=== PATIENT | female | born 1945 | race Caucasian/White ===

== ENCOUNTER 2020-10-18 10:22 | Emergency (ER) | payer MEDICARE, OTHER, SELFPAY ==
[2020-10-18 10:36] VITALS: BP 188/88; PULSE 107; RESP 20; TEMP 37.8; O2SAT 97; BMI 34.4
[2020-10-18 11:12] LABS: COVID19 -Nasal RAPID Negative (Negative)
--- NOTE | 2020-10-18 12:17 | DI.RAD.S_ITS ---
PROCEDURE: XR CHEST 1V INDICATIONS: cough, congestion TECHNIQUE: One view of the chest was acquired. COMPARISON: None. FINDINGS: Surgical changes and devices: None. Lungs and pleura: Question right perihilar mass. Lungs are clear. No pleural effusions or pneumothorax. Mediastinum: Question right perihilar mass. Heart size is normal. Bones and chest wall: No suspicious bony lesions. Overlying soft tissues appear unremarkable. IMPRESSION: Question right perihilar mass. Recommend CT chest with contrast. Dictated by: Lane Arango M.D. on 10/18/2020 at 12:31 Approved by: Lane Arango M.D. on 10/18/2020 at 12:32
--- NOTE | 2020-10-18 12:55 | DI.CT.S_ITS ---
PROCEDURE: CT HEAD/BRAIN WO CON INDICATIONS: glf hit head on toilet TECHNIQUE: Noncontrast 4.5 mm thick angled axial sections acquired from the foramen magnum to the vertex, with coronal and sagittal reformats. For radiation dose reduction, the following was used: automated exposure control, adjustment of mA and/or kV according to patient size. COMPARISON: None. FINDINGS: Image quality: Excellent. CSF spaces: Basal cisterns are patent. No extra-axial fluid collections. The ventricles are symmetric in size and shape. Brain: No intracranial bleeds or masses. There is cerebral volume loss for age, with resultant ventricular and sulcal prominence. There are periventricular and deep white matter chronic small vessel ischemic changes. There is intracranial internal carotid artery atherosclerosis. Skull and face: Calvarium and visualized facial bones appear intact, without suspicious lesions. Sinuses: Visualized sinuses and mastoids are clear. IMPRESSION: No acute intracranial disease process. Dictated by: Sangeeta Armendariz MD, PhD on 10/18/2020 at 13:28 Approved by: Sangeeta Armendariz MD, PhD on 10/18/2020 at 13:29
--- NOTE | 2020-10-18 13:14 | ED_ITS ---
HPI - URI/Sore Throat <ЕЛЕНА Duke - Last Filed: 10/18/20 17:06> General Chief Complaint: Upper Respiratory Symptoms Stated Complaint: ear ache, congestion, headache. fell Time Seen by Provider: 10/18/20 12:03 Source: patient Mode of arrival: Ambulatory Limitations: no limitations History of Present Illness HPI Narrative: The patient is a 74-year-old female nonsmoker with history of 1 kidney who presents with a chief complaint of earache, congestion, headache. She also notes that she fell Thday night in a hotel room and hit the right side of her forehead against a toilet. This happened when she was walking around her hotel room in the dark at night. She leaned forward, believing that she would lean on a door, and Insteadl fell forward. she denies any loss of consciousness, states that she felt fine the next day. She denies any side midline neck pain. She complains of pain on the right side of her neck. She states that she has not taken anything for the pain as Tylenol does not work. She is afraid to take NSAIDs with her 1 kidney. She also notes that she has had a very bad earache for the past few days. She complains of low-grade temperatur es and congestion. She has been fully vaccinated against COVID with both shots of a Pfizer series. She has been using [id number] Mucinex. She is in town visiting her sister. she does have a slight cough. Related Data Previous Rx's Medication Instructions Recorded acetaminophen 300 mg-codeine 30 mg 1 tab PO Q4-6H PRN #7 tab 10/18/20 tablet amoxicillin 875 mg tablet 875 mg PO BID #14 tab 10/18/20 lidocaine 5 % topical patch 1 patch TOPICAL DAILY PRN #15 ea 10/18/20 Allergies Allergy/AdvReac Type Severity Reaction Status Date / Time Sulfa (Sulfonamide Allergy Verified 10/18/20 10:45 Antibiotics) Review of Systems <ЕЛЕНА Duke - Last Filed: 10/18/20 17:06> Review of Systems Narrative: GENERAL: see HPI HEENT: see HPI RESPIRATORY: see HPI CARDIOVASCULAR: Denies chest pain, palpitations, orthopnea, edema, GASTROINTESTINAL: Denies nausea, vomiting, abdominal pain, diarrhea, constipation, melena. : Denies dysuria, frequency, incontinence, hematuria, urinary retention. MUSCULOSKELETAL: denies weakness, joint pain, or bony pain SKIN: Denies rash, skin lesions, or other NEUROLOGIC: Denies weakness, headache, numbness, change in speech, confusion, seizures, incoordination. PSYCHIATRIC: No concerning psychosocial issues. 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 HEAD: Atraumatic. Normocephalic. No temporal or scalp tenderness. EYES: Pupils equal round and reactive. Extraocular motions intact. No scleral icterus. No injection or drainage. ENT: Nose without bleeding, purulent drainage or septal hematoma. Throat without erythema, tonsillar hypertrophy or exudate. Uvula midline. Airway patent. right TM slightly erythematous and bulging. No pain to palpation of right pinna, no pain to palpation right mastoid. Right ear canal within normal limits, left ear canal within normal limits, left TM pearly padilla NECK: Trachea midline. No JVD or lymphadenopathy. Supple, nontender, no meningeal signs. CARDIOVASCULAR: Regular rate and rhythm RESPIRATORY: Clear to auscultation. Breath sounds equal bilaterally. No wheezes, rales, or rhonchi. Occasional cough. No increased respiratory effort. Speaking full sentences. GASTROINTESTINAL: Abdomen soft, non-tender, nondistended. No hepato- splenomegaly, or palpable masses. No guarding. EXTREMITIES: No clubbing, cyanosis, or edema. No joint tenderness, effusion, or edema noted. BACK: No pain to C-spine palpation. Nontender without deformity or crepitance. No flank tenderness. NEURO: AOx3. SKIN: No rash or erythema On visible skin Initial Vital Signs Initial Vital Signs: Vital Signs Temperature 100.1 F H 10/18/20 10:36 Pulse Rate 107 H 10/18/20 10:36 Respiratory Rate 20 10/18/20 10:36 Blood Pressure 188/88 H 10/18/20 10:36 Pulse Oximetry 97 10/18/20 10:36 <Ben Easton DO - Last Filed: 10/18/20 17:06> Initial Vital Signs Initial Vital Signs: Vital Signs Temperature 100.1 F H 10/18/20 10:36 Pulse Rate 107 H 10/18/20 10:36 Respiratory Rate 20 10/18/20 10:36 Blood Pressure 188/88 H 10/18/20 10:36 Pulse Oximetry 97 10/18/20 10:36 Scores <ЕЛЕНА Duke - Last Filed: 10/18/20 17:06> [place] CT Head Rule Age <16 years old: No Patient on blood thinners: No Seizure after injury: No Exclusion: Patient NOT Excluded, Proceed to next steps GCS < 15 at 2 hr post trauma: No Suspected open or depressed skull fracture: No Any sign of basilar skull fracture (hemotympanum, raccoon eyes, Bello's sign, CSF xi-/rhinorrhea): No Two or more episodes of vomiting: No Age greater or equal to 65 years: Yes Retrograde amnesia to the event greater or equal to 30 min: No Dangerous Mechanism (pedestrian vs. mv, occupant ejected from mv, fall from >3 ft or > 5 stairs): No Recommendation: Consider CT. The [place] Head CT Rule cannot rule out need for Imaging. GCS [place] coma scale eye opening: Spontaneous Myles coma scale verbal response: Orientated [place] coma scale motor response: Obey commands [place] coma scale total score: 15 Nexus Score for C-Spine Focal Neurologic deficit present: No Midline spinal tenderness present: No Altered level of conciousness present: No Intoxication present: No Distracting Injury Present: No Nexus Criteria for C-spine: 0 <DO Khoa Beyer Last Filed: 10/18/20 17:06> [place] CT Head Rule Exclusion: Patient NOT Excluded, Proceed to next steps Recommendation: Consider CT. The [place] Head CT Rule cannot rule out need for Imaging. GCS [place] coma scale total score: 15 Nexus Score for C-Spine Nexus Criteria for C-spine: 0 Course <ЕЛЕНА Duke - Last Filed: 10/18/20 17:06> Orders Ordered: ED Orders 10/18/20 10:40 COVID19 -Nasal swab/Pre-Proc Stat 10/18/20 12:17 XR chest 1V Stat 10/18/20 12:55 CT head/brain wo con Stat Discontinued Medications Acetaminophen (Acetaminophen 325 Mg Tablet) 325 mg PO NOW ONE Stop: 10/18/20 12:57 Last Admin: 10/18/20 13:34 Dose: 325 mg Documented by: ASHVIN Hydrocodone Bitart/Acetaminophen (Hydrocodone/Acet 5/325 Tablet) 1 tab PO NOW ONE Stop: 10/18/20 12:56 Last Admin: 10/18/20 13:34 Dose: 1 tab Documented by: ASHVIN Cyclobenzaprine HCl (Cyclobenzaprine 10 Mg Tablet) 10 mg PO NOW ONE Stop: 10/18/20 12:59 Last Admin: 10/18/20 13:35 Dose: 10 mg Documented by: ASHVIN Lidocaine (Lidocaine Patch 1 Each Adh..Patch) 1 each TOP NOW ONE Stop: 10/18/20 12:59 Last Admin: 10/18/20 13:35 Dose: 1 each Documented by: ASHVIN Vital Signs Vital signs: Vital Signs - 8 hr 10/18/20 10:36 10/18/20 14:19 Temperature 100.1 F H 97.8 F Pulse Rate 107 H 89 Respiratory Rate 20 12 Blood Pressure 188/88 H 140/73 Pulse Oximetry 97 98 <Ben Easton DO - Last Filed: 10/18/20 17:06> Orders Ordered: ED Orders 10/18/20 10:40 COVID19 -Nasal swab/Pre-Proc Stat 10/18/20 12:17 XR chest 1V Stat 10/18/20 12:55 CT head/brain wo con Stat Discontinued Medications Acetaminophen (Acetaminophen 325 Mg Tablet) 325 mg PO NOW ONE Stop: 10/18/20 12:57 Last Admin: 10/18/20 13:34 Dose: 325 mg Documented by: ASHVIN Hydrocodone Bitart/Acetaminophen (Hydrocodone/Acet 5/325 Tablet) 1 tab PO NOW ONE Stop: 10/18/20 12:56 Last Admin: 10/18/20 13:34 Dose: 1 tab Documented by: ASHVIN Cyclobenzaprine HCl (Cyclobenzaprine 10 Mg Tablet) 10 mg PO NOW ONE Stop: 10/18/20 12:59 Last Admin: 10/18/20 13:35 Dose: 10 mg Documented by: ASHVIN Lidocaine (Lidocaine Patch 1 Each Adh..Patch) 1 each TOP NOW ONE Stop: 10/18/20 12:59 Last Admin: 10/18/20 13:35 Dose: 1 each Documented by: ASHVIN Vital Signs Vital signs: Vital Signs - 8 hr 10/18/20 10:36 10/18/20 14:19 Temperature 100.1 F H 97.8 F Pulse Rate 107 H 89 Respiratory Rate 20 12 Blood Pressure 188/88 H 140/73 Pulse Oximetry 97 98 MDM - URI/Sore Throat <ЕЛЕНА Duke - Last Filed: 10/18/20 17:06> Lab Data Labs: Lab Results 10/18/20 Range/Units 10:40 SARS-CoV-2 (PCR) Negative (Negative) Imaging Data CT scan - head: Radiologist's Impression: [address] [place] [id number] Scan ReportSigned Patient: Lizzeth Parekh MMR#: [id number]: 6Acct:[id number]/Sex: 74 / FDate of Service: 10/18/20Loc: EDAccession Number: [id number] Procedure: CT head/brain wo con Ordering Provider: Latonia Garcia PROCEDURE: CT HEAD/BRAIN WO CON INDICATIONS: glf hit head on toilet TECHNIQUE: Noncontrast 4.5 mm thick angled axial sections acquired from the foramen magnum to the vertex, with coronal and sagittal reformats. For radiation dose reduction, the following was used: automated exposure control, adjustment of mA and/or kV according to patient size. COMPARISON: None. FINDINGS: Image quality: Excellent. CSF spaces: Basal cisterns are patent. No extra-axial fluid collections. The ventricles are symmetric in size and shape. Brain: No intracranial bleeds or masses. There is cerebral volume loss for age, with resultant ventricular and sulcal prominence. There are periventricular and deep white matter chronic small vessel ischemic changes. There is intracranial internal carotid artery atherosclerosis. Skull and face: Calvarium and visualized facial bones appear intact, without suspicious lesions. Sinuses: Visualized sinuses and mastoids are clear. IMPRESSION: No acute intracranial disease process. Dictated by: Sangeeta Armendariz MD, PhD on 10/18/2020 at 13:28 Approved by: Sangeeta Armendariz MD, PhD on 10/18/2020 at 13:29 Chest x-ray: Radiologist's Impression: [address] [place] [id number] ReportSigned Patient: Lizzeth Parekh MMR#: [id number]: 6Acct:[id number]/Sex: 74 / FDate of Service: 10/18/20Loc: EDAccession Number: [id number] Procedure: XR chest 1V Ordering Provider: Ben Easton D.O. PROCEDURE: XR CHEST 1V INDICATIONS: cough, congestion TECHNIQUE: One view of the chest was acquired. COMPARISON: None. FINDINGS: Surgical changes and devices: None. Lungs and pleura: Question right perihilar mass. Lungs are clear. No pleural effusions or pneumothorax. Mediastinum: Question right perihilar mass. Heart size is normal. Bones and chest wall: No suspicious bony lesions. Overlying soft tissues appear unremarkable. IMPRESSION: Question right perihilar mass. Recommend CT chest with contrast. Dictated by: Lane Arango M.D. on 10/18/2020 at 12:31 Appro[address] by: Lane Arango M.D. on 10/18/2020 at 12:32 [facility] Narrative Medical decision making narrative: The patient is a 74-year-old female who presents several days after ground level fall into a twin with a chief complaint of right ear pain. Given that she is over 65 and having headache as well as your pain, head CT was taken to rule out bleed and/or fracture particularly the temporal bone. This resulted negative. Exam is somewhat concerning for infection with a bulging slightly erythematous tympanic membrane, so initiate treatment for otitis media with amoxicillin. Was able to clear his C-spine by nexus criteria as she has no pain to C-spine palpation. She does have slight pain to palpation to the side of her neck, likely musculoskeletal so she was given lidocaine as low benzo pain in the emergency department. She states she has muscle relaxers at home. Discussed at length the importance of following up with primary care provider as well as coming back to the ER for acute concerns. The patient has negative for COVID today, does have suspicion and a small perihilar mass on x-ray, patient states that she knows about this has been worked up for before. She appears well and nontoxic in the emergency department. No questions or concernsUpon discharge states understanding <Ben Easton, DO - Last Filed: 10/18/20 17:06> Lab Data Labs: Lab Results 10/18/20 Range/Units 10:40 SARS-CoV-2 (PCR) Negative (Negative) Discharge Plan Departure Patient Disposition: Home Clinical Impression: Neck muscle spasm, Fall from ground level Otitis media Qualifiers: Otitis media type: unspecified Chronicity: acute Qualified Code(s): H66.90 - Otitis media, unspecified, unspecified ear Upper respiratory infection Qualifiers: URI type: unspecified URI Qualified Code(s): J06.9 - Acute upper respiratory infection, unspecified Instructions: Middle Ear Infection, How to Prevent Falls, DI for Ear Pain- Adult, DI for Muscle Spasm Activity Restrictions/Additional Instructions: thank you for trusting us with your care today. As discussed, your head CT shows no sign of fracture or bleed. This is great news. I sent several prescriptions to [facility], including an antibiotic. Please take this with probiotic or yogurt. I also sent prescriptions of Tylenol with codeine for pain and lidocaine patch for pain. I also encouraged lmgw-qmi-vbwrhky measures such as Flonase, NeilMed sinus rinse or Neti pot, decongestants as able. I have given you a prescription of a narcotic for pain. Be aware that this can be constipating and sedating. I encouraged taking with a stool softener, pushing fluids and fiber. Do not take and drive, operate heavy machinery, etc. Do not combine it with any other sedating substances such as alcohol. The combination of narcotics and alcohol and/or other sedatives can be lethal. Please be aware that we do not provide refills of controlled substances in the emergency department. Please follow up with her primary care provider. As discussed, please follow-up with primary care provider in the next few days. We did make note of the possible right-sided lung mass, which you were aware of. you did test negative for coronavirus today. Please be aware that we can have false negative test, so please be retested if you continue to have symptoms Prescriptions: New lidocaine 5 % adhesive patch,medicated 1 patch topical DAILY PRN (Reason: pain) Qty: 15 RF: 0 amoxicillin 875 mg tablet 875 mg PO BID Qty: 14 RF: 0 acetaminophen-codeine 300-30 mg tablet 1 tab PO Q4-6H PRN (Reason: pain) Qty: 7 RF: 0 <Ben Easton, DO - Last Filed: 10/18/20 17:06> Cosign ED Attending Cosignature Attestation: Dr Easton Co-Sign Statement: I was available for consultation during this patient's emergency department visit. This chart is signed by myself for administrative purposes only. I did not have direct contact with this patient during this visit. They were seen independently by the APC.
[2020-10-18] MEDS: HYDROCODONE/ACET 5/325 TABLET 1 TAB PO (13:34)
[2020-10-18] MEDS: ACETAMINOPHEN 325 MG TABLET PO (13:34)
[2020-10-18] MEDS: LIDOCAINE PATCH 1 EACH ADH..PATCH TOP (13:35)
[2020-10-18] MEDS: CYCLOBENZAPRINE 10 MG TABLET PO (13:35)
[2020-10-18 14:19] VITALS: BP 140/73; PULSE 89; RESP 12; TEMP 36.6; O2SAT 98
--- NOTE | 2020-10-18 14:50 | PC.NURSE ---
Right ear pain, fell hit head two nights ago on toliet. Reports ongoing pain in ear. Congestion and cough.
== END 2020-10-18 14:51 | disposition home or self-care (01) ==
PROVIDERS: Emergency Medicine; Emergency Provider Nurse Practitioner Family
DX: M62.838 Other muscle spasm (principal); H66.90 Otitis media, unspecified, unspecified ear; J06.9 Acute upper respiratory infection, unspecified; S09.90XA Unspecified injury of head, initial encounter; R05 Cough; W19.XXXA Unspecified fall, initial encounter; Z20.822 Contact with and (suspected) exposure to COVID-19
CPT/HCPCS: 70450; 71045; 87635; 99284; C9803